=== PATIENT | male | born 1975 | race Caucasian/White ===

== ENCOUNTER 2020-11-17 01:35 | Emergency (ER) | payer OTHER ==
[2020-11-17] MEDS ORDERED: FIORINAL CAPSULE1 EA PO (05:31)
== END 2020-11-17 06:05 | disposition home or self-care (01) ==
LOC: ER1 01:35
DX: G43.909 Migraine, unspecified, not intractable, without status migrainosus (principal); J45.909 Unspecified asthma, uncomplicated; G40.909 Epilepsy, unspecified, not intractable, without status epilepticus; F17.200 Nicotine dependence, unspecified, uncomplicated; Z90.49 Acquired absence of other specified parts of digestive tract; Z90.89 Acquired absence of other organs; Z79.899 Other long term (current) drug therapy
CPT/HCPCS: 70450; 96374; 96375; 99283; J1200; J1885; J2765

== ENCOUNTER 2021-04-24 07:23 | Emergency (ER) | payer OTHER ==
[~2021-04-24 07:23] MED LIST: FIORINAL CAPSULE1 EA PO
[2021-04-24 08:21] LABS: HEMOGLOBIN 15.2 gm/dl (14.0-17.5); RED BLOOD COUNT 4.67 M/UL (4.20-5.50); WHITE BLOOD COUNT 11.2 K/UL (4.5-11.0)
[2021-04-24 09:08] LABS: BUN/CREATININE RATIO 17 (0-10)
[2021-04-24] MEDS ORDERED: NAPROSYN500 MG PO (09:59)
[2021-04-24] MEDS ORDERED: AUGMENTIN 875-1 EACH PO (09:59)
== END 2021-04-24 10:53 | disposition home or self-care (01) ==
LOC: ER1 07:23
PROVIDERS: Physician Assistant
DX: L03.114 Cellulitis of left upper limb (principal); L76.82 Other postprocedural complications of skin and subcutaneous tissue; F17.210 Nicotine dependence, cigarettes, uncomplicated; Z90.49 Acquired absence of other specified parts of digestive tract
CPT/HCPCS: 73130; 80053; 85025; 85652; 86140; 87040; 96374; 99283; J3370; J7030

== ENCOUNTER 2021-09-01 10:54 | Emergency (ER) | payer OTHER ==
[~2021-09-01 10:54] MED LIST changes: +AUGMENTIN 875-1 EACH PO; +NAPROSYN500 MG PO
== END 2021-09-01 11:03 | disposition left against medical advice (07) ==
LOC: ER1 10:54
DX: Z53.21 Procedure and treatment not carried out due to patient leaving prior to being seen by health care provider (principal)